=== PATIENT | female | born 1995 | race Caucasian/White ===

== ENCOUNTER 2023-03-27 07:38 | Observation (INO) | payer SELFPAY ==
[2023-03-27] MEDS ORDERED: Ondansetron PF 4 MG/2 ML Vial ONE ×2 (08:11→15:40)
[2023-03-27] MEDS ORDERED: Morphine 4 MG/ML VIAL ONE (08:11)
[2023-03-27 08:31] LABS: #Eosinphils 0.1 thou/uL (0.0-0.7); #Monocytes 0.6 thou/uL (0.11-0.59); #Neutrophils 4.6 thou/uL (1.40-6.50); %Basophils 0.6 % (0.0-1.0); %Eosinophils 1.7 % (0.0-10.0); %Lymphocytes 25.1 % (21.0-51.0); %Monocytes 8.9 % (0.0-10.0); %Neutrophils 63.6 % (42.0-75.0); Hematocrit 40.6 % (36.0-47.0); Mean Corpuscular Hemoglobin 24.8 pg (27.0-31.0); Mean Corpuscular Volume 77.5 fl (78.0-98.0); Mean Platelet Volume 9.3 fL (7.4-10.4); Platelet Count 377 10x3/uL (130-400); RBC Distribution Width 15.5 % (11.5-14.5); Red Blood Cell (RBC) Count 5.24 mill/uL (4.20-5.40); White Blood Cell (WBC) Count 7.2 10x3/uL (4.8-10.8)
[2023-03-27 08:37] LABS: Bacteria/HPF None Seen HPF (None Seen); Bilirubin Negative (Negative); Blood, Urine Negative (Negative); CAUTI Indications for Culture Dysuria,urgency,freq; Clarity Clear (Clear); Glucose, Urine (Dipstick) Normal (Negative); Ketone, Urine 10 mg/dL (Negative); Leukocyte Negative Leu/uL (Negative); Nitrite Negative (Negative); Protein, Urine (Dipstick) Negative (Neg-Trace); RBC/HPF 0-3 HPF (0-3); Specific Gravity, Urine 1.023 (1.002-1.036); Squamous Epithelial 0-3 HPF (0-3); Urobilinogen Normal mg/dL (Less than 2); WBC/HPF 0-3 HPF (0-3); pH, Urine 5.5 (5.0-9.0)
[2023-03-27 08:42] LABS: Urine Culture Reflex No No
[2023-03-27 08:47] LABS: BHCG - Serum Negative (NEGATIVE); Pregs Control Background? CLEAR/WHITE (CLR/WHITE); Pregs Control Bar Appear? YES (CONTROL BAR)
[2023-03-27 08:57] LABS: ALT (SGPT) 932 U/L (8-55); AST (SGOT) 551 U/L (5-34); Albumin 4.8 g/dL (3.5-5.0); Alkaline Phosphatase 284 U/L (40-110); Anion Gap 10 mmol/L (10-20); BUN (Urea Nitrogen) 11 mg/dL (7.0-18.7); Bilirubin, Total 1.3 mg/dL (0.2-1.2); Calc. Creatinine Clearance 0 mL/min (70-130); Calcium 9.8 mg/dL (7.8-10.44); Carbon Dioxide 25 mmol/L (22-29); Chloride 105 mmol/L (98-107); Estimated GFR 122; Globulin 2.9 g/dL (2.4-3.5); Glucose 99 mg/dL (70-105); Lipase 19 U/L (8-78); Potassium 3.8 mmol/L (3.5-5.1); Protein, Total 7.7 g/dL (6.0-8.3); Sodium 136 mmol/L (136-145)
[2023-03-27 09:14] LABS: Troponin I Less than 0.010 ng/mL (< 0.028)
[2023-03-27] MEDS ORDERED: Iopamidol-370 76% 500 ML MDV (1 ML CHARGE) ONE (11:06)
[2023-03-27] MEDS ORDERED: Ondansetron PF 4 MG/2 ML Vial IVP PRN (12:03)
[2023-03-27] MEDS ORDERED: Sodium Chloride 0.9% 1,000 ML IV SCH ×2 (12:15→14:18)
[2023-03-27 12:43] LABS: HBSAg Index 0.27 S/CO (0-0.99); Hep A IgM AB Non-Reactive S/CO (NonReactive); Hep B Surf Ag Non-Reactive S/CO (NonReactive); Hep C IgG Ab Non-Reactive S/CO (NonReactive); Hep C Index 0.24 S/CO (0-0.79); Hepatitis B Core IgM Abs Non-Reactive S/CO (NonReactive)
[2023-03-27 14:05] VITALS: BMI 26.8
[2023-03-27] MEDS ORDERED: Ketorolac Tromethamine 30 MG/ML VIAL IVP SCH (14:30)
[2023-03-27] MEDS ORDERED: FLU VACC QS2023-24(6MOS UP)/PF 60 MCG/0.5 ML SYRINGE IM ONE (14:45)
[2023-03-27] MEDS ORDERED: Iopamidol 30 ML ONE (14:50)
[2023-03-27] MEDS ORDERED: Bupivacaine PF 0.5% 30 ML VIAL ONE (14:50)
[2023-03-27] MEDS ORDERED: Glucagon 1 MG/ML KIT ONE (14:50)
[2023-03-27] MEDS ORDERED: EPINEPHrine 1 MG/ML AMP ONE (14:50)
[2023-03-27] MEDS ORDERED: LevoFLOXacin 500 mg/D5W 100 ML BAG ONE (14:58)
[2023-03-27] MEDS ORDERED: Ketorolac Tromethamine 30 MG/ML VIAL ONE (14:58)
[2023-03-27] MEDS ORDERED: Scopolamine 1.5 mg/72 hour Patch ONE (14:58)
[2023-03-27] MEDS ORDERED: Scopolamine 1.5 mg/72 hour Patch TD SCH (15:00)
[2023-03-27] MEDS ORDERED: LevoFLOXacin 500 mg/D5W 500 MG in Premix 1 BAG IVPB SCH (15:00)
[2023-03-27] MEDS ORDERED: HYDROmorphone 0.5 MG/0.5 ML SYRINGE ONE (15:07)
[2023-03-27] MEDS ORDERED: SUGAMMADEX SODIUM 200 MG/2 ML VIAL ONE (15:07)
[2023-03-27] MEDS ORDERED: fentaNYL PF 100 MCG/2 ML SYRINGE ONE (15:07)
[2023-03-27] MEDS ORDERED: Famotidine/PF 20 mg/2ml Vial ONE (15:12)
[2023-03-27] MEDS ORDERED: Acetaminophen 500 MG TAB PO PRN (15:21)
[2023-03-27] MEDS ORDERED: Ibuprofen 600 MG TAB PO PRN (15:21)
[2023-03-27] MEDS ORDERED: Acetaminophen 500 MG TAB PO SCH (15:30)
[2023-03-27] MEDS ORDERED: Dexamethasone 20 MG/5 ML VIAL ONE (15:40)
[2023-03-27] MEDS ORDERED: Rocuronium Bromide 10 MG/ML (10ML VIAL) ONE (15:40)
[2023-03-27] MEDS ORDERED: Succinylcholine 200 MG/10 ml SYRINGE FS ONE (15:40)
[2023-03-27] MEDS ORDERED: NEOSTIGMINE 3 MG/3 ML SYR 3 MG/3 ML SYRINGE ONE (15:40)
[2023-03-27] MEDS ORDERED: PROPOFOL 200 MG/20 ML VIAL ONE (15:40)
[2023-03-27] MEDS ORDERED: Lidocaine 1% PF 5 ML VIAL ONE (15:40)
[2023-03-27] MEDS ORDERED: Metoclopramide HCl 10 MG/2 ML VIAL ONE (15:40)
[2023-03-27] MEDS ORDERED: Glycopyrrolate 0.2 MG/ML 5 ML SYRINGE ONE (15:40)
[2023-03-27] MEDS ORDERED: Morphine Sulfate 2 MG/ML SYRINGE SLOW IVP PRN (16:21)
[2023-03-27] MEDS ORDERED: Meperidine HCl/PF 25 MG/ML VIAL SLOW IVP PRN (16:21)
[2023-03-27] MEDS ORDERED: HYDROmorphone 2 MG/ML VIAL SLOW IVP PRN (16:21)
[2023-03-27] MEDS ORDERED: Ondansetron HCl/PF 4 MG/2 ML Vial IVP PRN (16:21)
[2023-03-27] MEDS ORDERED: Promethazine HCl 25 MG/ML VIAL IM PRN (16:21)
[2023-03-27] MEDS ORDERED: Meperidine HCl/PF 25 MG/ML VIAL ONE (16:38)
[2023-03-27] MEDS ORDERED: Morphine 4 MG/ML VIAL SLOW IVP PRN (16:56)
[2023-03-27] MEDS ORDERED: fentaNYL 50 mcg/mL 1 mL Vial ONE (17:03)
[2023-03-27] MEDS ORDERED: Acetaminophen 500 MG TAB ONE (17:26)
[2023-03-27] MEDS: Lactated Ringer's 1,000 ML IV SCH (18:21)
[2023-03-27] MEDS: Ketorolac Tromethamine 30 MG/ML VIAL IVP SCH ×2 (18:22→18:39)
[2023-03-27] MEDS: traMADol HCl 50 MG TAB PO PRN (19:49)
[2023-03-28] MEDS: Lactated Ringer's 1,000 ML IV SCH ×2 (00:23→08:05)
[2023-03-28] MEDS: Ketorolac Tromethamine 30 MG/ML VIAL IVP SCH ×3 (00:24→12:40)
[2023-03-28 07:31] LABS: #Monocytes 0.7 thou/uL (0.11-0.59); #Neutrophils 5.1 thou/uL (1.40-6.50); %Basophils 0.4 % (0.0-1.0); %Eosinophils 0.1 % (0.0-10.0); %Lymphocytes 22.3 % (21.0-51.0); %Monocytes 9.6 % (0.0-10.0); %Neutrophils 67.5 % (42.0-75.0); Hematocrit 37.8 % (36.0-47.0); Hemoglobin 11.7 g/dL (12.0-16.0); Mean Corpuscular Hemoglobin 25.2 pg (27.0-31.0); Mean Platelet Volume 9.4 fL (7.4-10.4); Platelet Count 301 10x3/uL (130-400); RBC Distribution Width 15.5 % (11.5-14.5); Red Blood Cell (RBC) Count 4.65 mill/uL (4.20-5.40); White Blood Cell (WBC) Count 7.6 10x3/uL (4.8-10.8)
[2023-03-28 07:36] LABS: Mean Corpuscular Volume 81.3 fl (78.0-98.0)
[2023-03-28 08:09] LABS: ALT (SGPT) 784 U/L (8-55); AST (SGOT) 422 U/L (5-34); Albumin 4.1 g/dL (3.5-5.0); Alkaline Phosphatase 292 U/L (40-110); Anion Gap 14 mmol/L (10-20); BUN (Urea Nitrogen) 8 mg/dL (7.0-18.7); Bilirubin, Total 2.1 mg/dL (0.2-1.2); Calc. Creatinine Clearance 156 mL/min (70-130); Calcium 8.5 mg/dL (7.8-10.44); Carbon Dioxide 20 mmol/L (22-29); Chloride 105 mmol/L (98-107); Estimated GFR 126; Globulin 2.5 g/dL (2.4-3.5); Glucose 146 mg/dL (70-105); Potassium 3.8 mmol/L (3.5-5.1); Protein, Total 6.6 g/dL (6.0-8.3); Sodium 135 mmol/L (136-145)
[2023-03-28] MEDS: traMADol HCl 50 MG TAB PO PRN (08:27)
[2023-03-28 08:35] VITALS: BP 116/75; TEMP 98.5
[2023-03-28] MEDS ORDERED: Pantoprazole 40 MG VIAL IVP SCH (09:00)
[2023-03-28] MEDS ORDERED: Indomethacin 50 MG SUPP ONE (10:37)
[2023-03-28] MEDS ORDERED: Iopamidol 15 ML ONE (10:37)
[2023-03-28] MEDS ORDERED: LevoFLOXacin 500 mg/D5W 100 ML BAG ONE (10:46)
[2023-03-28] MEDS ORDERED: fentaNYL 50 mcg/mL 1 mL Vial ONE ×2 (10:48→10:49)
[2023-03-28] MEDS ORDERED: Midazolam HCl 2 mg/2 ml Vial ONE (10:49)
[2023-03-28] MEDS ORDERED: Ondansetron PF 4 MG/2 ML Vial ONE (10:55)
[2023-03-28] MEDS ORDERED: Rocuronium Bromide 10 MG/ML (10ML VIAL) ONE (10:55)
[2023-03-28] MEDS ORDERED: PROPOFOL 200 MG/20 ML VIAL ONE (10:55)
[2023-03-28] MEDS ORDERED: Dexamethasone 20 MG/5 ML VIAL ONE (10:55)
[2023-03-28] MEDS ORDERED: Lidocaine 1% PF 5 ML VIAL ONE (10:55)
[2023-03-28] MEDS ORDERED: SUGAMMADEX SODIUM 200 MG/2 ML VIAL ONE (11:03)
[2023-03-28] MEDS ORDERED: Promethazine HCl 25 MG/ML VIAL IM PRN (11:58)
[2023-03-28] MEDS ORDERED: Ondansetron HCl/PF 4 MG/2 ML Vial IVP PRN (11:58)
[2023-03-28] MEDS ORDERED: Ibuprofen 600 MG TAB PO PRN (12:57)
[2023-03-28] MEDS ORDERED: LevoFLOXacin 500 mg/D5W 500 MG in Premix 1 BAG IVPB SCH (15:00)
== END 2023-03-28 15:39 | disposition home or self-care (01) ==
LOC: ERS 07:38 → T4-A 12:03
PROVIDERS: ADMIT Family Medicine; ATTEND Nurse Practitioner Family
PROC: 0FT44ZZ Resection of Gallbladder, Percutaneous Endoscopic Approach (ICD-10-PCS; principal; 2023-03-27)
PROC: BF13YZZ Fluoroscopy of Gallbladder and Bile Ducts using Other Contrast (ICD-10-PCS; 2023-03-27)
PROC: 0FC98ZZ Extirpation of Matter from Common Bile Duct, Via Natural or Artificial Opening Endoscopic (ICD-10-PCS; 2023-03-28)
DX: K80.66 Calculus of gallbladder and bile duct with acute and chronic cholecystitis without obstruction (principal); R94.5 Abnormal results of liver function studies; R74.01 Elevation of levels of liver transaminase levels; Z91.041 Radiographic dye allergy status
CPT/HCPCS: 36415; 36416; 47532; 74177; 74330; 76705; 80053; 80074; 81001; 83605; 83690; 84484; 84703; 85025; 88304; 93005; 96361; 96374; 96375; 96376; C1889; C9113; G0378; J0171; J1100; J1170; J1611; J1885; J1956; J2175; J2250; J2270; J2405; J2704; J2765; J3010; J7120; Q9967; S0020; S0028